=== PATIENT | female | born 1945 | race Caucasian/White ===

== ENCOUNTER → 2017-01-03 | Outpatient (CLI) | payer MEDICARE ==
[2017-01-03 10:33] LABS: MEAN CORPUSCULAR HGB CONC 34.4 g/dL (31.0-37.0); MEAN PLATELET VOLUME 9.6 FL (6.0-9.5); PLATELET COUNT 108 10^3uL (150-450); WHITE BLOOD COUNT 2.38 10^3uL (4.0-11.0)
[2017-01-03 10:57] LABS: ALBUMIN 2.9 g/dL (3.4-5.0); ANION GAP 8.6 MEQ/L (3-15); CALCULATED IONIZED CALCIUM 4.5 mg/dL (3.8-4.6); TOTAL PROTEIN 5.9 g/dL (6.4-8.5)
[2017-01-03 11:03] LABS: MEAN CORPUSCULAR HEMOGLOBIN 36.4 PG (26.0-34.0); MEAN CORPUSCULAR VOLUME 106 FL (80-100)
[2017-01-03 11:06] LABS: BAND NEUTROPHILS % 0 % (0-6); EOSINOPHILS % 3 % (0-4); LYMPHOCYTES # 0.6 #; MONOCYTES # 0.2 #; MONOCYTES % 10 % (3-11); RBC MORPH NORMAL (NORMAL); SEGMENTED NEUTROPHILS % 59 % (51-67); TOTAL CELLS COUNTED 100
[2017-01-03 17:46] LABS: IRON 194 ug/dL (50-170); UNBOUND IRON CONTENT <47 ug/dl (126-382)
== END ==
LOC: LAB 10:13
PROVIDERS: ATTEND Internal Medicine Hematology & Oncology
DX: D46.4 Refractory anemia, unspecified (principal); M05.79 Rheumatoid arthritis with rheumatoid factor of multiple sites without organ or systems involvement; Z79.899 Other long term (current) drug therapy
CPT/HCPCS: 36415; 80053; 82728; 83540; 83550; 85025; 85652; 86140

== ENCOUNTER → 2017-01-18 | Outpatient (CLI) | payer MEDICARE | LOC: LAB 12:37 | PROVIDERS: ATTEND Internal Medicine Hematology & Oncology | DX: D46.A Refractory cytopenia with multilineage dysplasia (principal) | CPT/HCPCS: 36415; 81256 ==

== ENCOUNTER → 2017-04-04 | Outpatient (CLI) | payer MEDICARE ==
[2017-04-04 11:13] LABS: BASOPHILS % (AUTO) 1 % (0-2); EOSINOPHILS # (AUTO) 0.1 10^3uL; EOSINOPHILS % (AUTO) 2 % (0-4); LYMPHOCYTES # (AUTO) 0.8 X10^3; MEAN CORPUSCULAR HGB CONC 34.9 g/dL (31.0-37.0); MEAN PLATELET VOLUME 9.9 FL (6.0-9.5); MONOCYTES # (AUTO) 0.4 X10^3; MONOCYTES % (AUTO) 12 % (3-11); NEUTROPHILS # (AUTO) 2.1 X10^3; NEUTROPHILS % (AUTO) 62 % (51-67); PLATELET COUNT 126 10^3uL (150-450); WHITE BLOOD COUNT 3.43 10^3uL (4.0-11.0)
[2017-04-04 11:37] LABS: MEAN CORPUSCULAR HEMOGLOBIN 37.9 PG (26.0-34.0); MEAN CORPUSCULAR VOLUME 109 FL (80-100)
== END ==
LOC: LAB 10:50
PROVIDERS: ATTEND Internal Medicine Hematology & Oncology
DX: D46.A Refractory cytopenia with multilineage dysplasia (principal)
CPT/HCPCS: 36415; 85025